=== PATIENT | female | born 2005 | race Two or more races ===

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

== ENCOUNTER 2025-04-06 18:56 | Emergency (ER) | payer SELFPAY ==
[~2025-04-06] VITALS: Ht 157.5 cm; Wt 43.6 kg
[2025-04-06 19:01] VITALS: BP 118/69; TEMP 98.9; O2SAT 100
[2025-04-06] MEDS: DERMABOND TOPICAL SKIN ADHESIVE TOP ONE (19:45)
== END 2025-04-06 20:14 | disposition home or self-care (01) ==
LOC: M ED 18:56
DX: S61.210A Laceration without foreign body of right index finger without damage to nail, initial encounter (principal); W26.8XXA Contact with other sharp object(s), not elsewhere classified, initial encounter; Y92.009 Unspecified place in unspecified non-institutional (private) residence as the place of occurrence of the external cause; Y93.9 Activity, unspecified; Y99.9 Unspecified external cause status

== ENCOUNTER → 2025-07-02 | Outpatient (CLI) | payer SELFPAY ==
[2025-07-02 18:00] LABS: PLATELET COUNT, AUTOMATED 290 10^3/uL (150-450)
[2025-07-02 18:12] LABS: HIV 1&2 SCREEN NEGATIVE (NEGATIVE)
[2025-07-02 18:20] LABS: HEPATITIS C VIRUS ABY INDEX < 0.02 INDEX (<0.8)
[2025-07-02 18:54] LABS: Trichomonas vaginalis (AMP) NOT DETECTED (NEGATIVE)
[2025-07-02 19:18] LABS: GC DNA AMPLIFICATION NEGATIVE (NEGATIVE)
== END ==
LOC: M PLALAB 14:53
PROVIDERS: ATTEND Advanced Practice Midwife
DX: Z34.80 Encounter for supervision of other normal pregnancy, unspecified trimester (principal)

== ENCOUNTER → 2025-08-03 | Outpatient (CLI) | payer OTHER | LOC: M WHC 08:01 | PROVIDERS: ATTEND Advanced Practice Midwife | DX: Z34.91 Encounter for supervision of normal pregnancy, unspecified, first trimester (principal) ==

== ENCOUNTER 2025-08-19 17:49 | Emergency (ER) | payer OTHER ==
[~2025-08-19] VITALS: Ht 160 cm; Wt 47.1 kg
== END 2025-08-19 18:35 | disposition admitted as inpatient to this hospital (09) ==
LOC: M ED 17:49
DX: Z53.21 Procedure and treatment not carried out due to patient leaving prior to being seen by health care provider (principal)